=== PATIENT | male | born 1995 | race African-American/Black ===

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

== ENCOUNTER 2017-07-02 16:39 | Emergency (ER) | payer SELFPAY ==
[~2017-07-02] VITALS: Ht 167.6 cm; Wt 90.0 kg
[2017-07-02 17:37] VITALS: BP 124/70
== END 2017-07-02 17:44 | disposition home or self-care (01) | DRG 563 ==
LOC: ED 16:39
DX: S63.641A Sprain of metacarpophalangeal joint of right thumb, initial encounter (principal); W21.9XXA Striking against or struck by unspecified sports equipment, initial encounter; Y93.67 Activity, basketball; Y92.310 Basketball court as the place of occurrence of the external cause

== ENCOUNTER 2018-01-31 09:13 | Emergency (ER) | payer SELFPAY ==
[~2018-01-31] VITALS: Ht 167.6 cm; Wt 70.0 kg
[2018-01-31] MEDS ORDERED: ONDANSETRON4 MG PO (09:19)
[2018-01-31 09:50] LABS: HEMATOCRIT 45.1 % (39.0-50.0); HEMOGLOBIN 15.2 g/dl (14.0-18.0); IMMATURE GRANULOCYTES 0.5 % (0.0-5.0); MEAN CELL VOLUME 84.3 fL CALC (80.0-100.0); MEAN CORPUSCULAR HGB 28.4 pG CALC (26.0-32.0); MEAN CORPUSCULAR HGB CONC 33.7 g/L CALC (32.0-36.0); NEUT# 3.51 thou/uL (1.82-7.42); RED BLOOD COUNT 5.35 mill/uL (4.70-6.10); RED CELL DISTRI WIDTH 12.7 % (11.5-15.5)
[2018-01-31 10:02] LABS: ALKALINE PHOSPHATASE 77 u/l (38-126); ANION GAP 12 (6-22 (CALC)); BILIRUBIN, TOTAL 0.8 mg/dL (0.0-1.4); BUN 9 mg/dL (9-20); BUN/CREATININE RATIO 11 (12-20 (CALC)); CARBON DIOXIDE 26 mmol/l (22-30); CHLORIDE 106 mmol/l (95-108); CREATININE 0.9 mg/dL (0.7-1.3); GFR > 60 ML/MIN (>=60 (CALC)); GFR FOR AFR.AMER. > 60 ML/MIN (>=60 (CALC)); LIPASE 32 u/l (23-300); POTASSIUM 4.1 mmol/l (3.5-5.1); SGOT/AST 31 u/l (17-59); SGPT/ALT 34 u/l (21-72); SODIUM 141 mmol/l (137-146); TOTAL PROTEIN 7.5 g/dL (6.3-8.2)
[2018-01-31 11:45] LABS: URINE BILIRUBIN - DIPSTICK NEGATIVE (NEGATIVE); URINE BLOOD DIPSTICK NEGATIVE (NEGATIVE); URINE CLARITY CLEAR; URINE COLOR YELLOW; URINE GLUCOSE - DIPSTICK NEGATIVE (NEGATIVE); URINE KETONE NEGATIVE (NEGATIVE); URINE LEUK ESTERASE NEGATIVE (NEGATIVE); URINE NITRITE - DIPSTICK NEGATIVE (Negative); URINE PH 7.5 (4.5-8.0); URINE PROTEIN - DIPSTICK NEGATIVE (NEG-TRACE); URINE SPECIFIC GRAVITY 1.015; URINE UROBILINOGEN - DIPSTICK 0.2 E.U./dL (0.2)
[2018-01-31 12:30] VITALS: BP 145/81
== END 2018-01-31 12:29 | disposition home or self-care (01) | DRG 392 ==
LOC: ED 09:13
PROVIDERS: Family Medicine
DX: A08.4 Viral intestinal infection, unspecified (principal); R11.2 Nausea with vomiting, unspecified; R19.7 Diarrhea, unspecified

== ENCOUNTER 2018-03-16 18:25 | Emergency (ER) | payer SELFPAY ==
[~2018-03-16] VITALS: Ht 167.6 cm; Wt 68.2 kg
[~2018-03-16 18:25] MED LIST changes: +ONDANSETRON4 MG PO
[2018-03-16 20:39] VITALS: BP 125/69
== END 2018-03-16 20:39 | disposition home or self-care (01) | DRG 607 ==
LOC: ED 18:25
DX: L84 Corns and callosities (principal); F17.210 Nicotine dependence, cigarettes, uncomplicated

== ENCOUNTER 2018-06-04 17:02 | Emergency (ER) | payer SELFPAY ==
[~2018-06-04] VITALS: Ht 167.6 cm; Wt 70.0 kg
[2018-06-04 17:06] VITALS: BP 118/77
== END 2018-06-04 17:34 | disposition home or self-care (01) | DRG 392 ==
LOC: ED 17:02
DX: R10.32 Left lower quadrant pain (principal); F17.200 Nicotine dependence, unspecified, uncomplicated

== ENCOUNTER 2018-06-08 14:28 | Emergency (ER) | payer SELFPAY ==
[~2018-06-08] VITALS: Ht 167.6 cm; Wt 70.0 kg
[2018-06-08 16:19] LABS: URINE BILIRUBIN - DIPSTICK NEGATIVE (NEGATIVE); URINE BLOOD DIPSTICK NEGATIVE (NEGATIVE); URINE COLOR YELLOW; URINE GLUCOSE - DIPSTICK NEGATIVE (NEGATIVE); URINE KETONE NEGATIVE (NEGATIVE); URINE LEUK ESTERASE NEGATIVE (NEGATIVE); URINE NITRITE - DIPSTICK NEGATIVE (Negative); URINE PH 6.5 (4.5-8.0); URINE PROTEIN - DIPSTICK NEGATIVE (NEG-TRACE); URINE UROBILINOGEN - DIPSTICK 0.2 E.U./dL (0.2)
[2018-06-08 16:54] VITALS: BP 121/79
== END 2018-06-08 16:54 | disposition home or self-care (01) | DRG 696 ==
LOC: ED 14:28
PROVIDERS: Family Medicine
DX: R35.0 Frequency of micturition (principal); Z20.2 Contact with and (suspected) exposure to infections with a predominantly sexual mode of transmission
CPT/HCPCS: J0561

== ENCOUNTER 2018-06-18 16:45 | Emergency (ER) | payer SELFPAY ==
[~2018-06-18] VITALS: Ht 167.6 cm; Wt 72.0 kg
[2018-06-18 17:39] LABS: HEMATOCRIT 39.4 % (39.0-50.0); HEMOGLOBIN 13.3 g/dl (14.0-18.0); IMMATURE GRANULOCYTES 0.2 % (0.0-5.0); MEAN CELL VOLUME 83.7 fL CALC (80.0-100.0); MEAN CORPUSCULAR HGB 28.2 pG CALC (26.0-32.0); MEAN CORPUSCULAR HGB CONC 33.8 g/L CALC (32.0-36.0); NEUT# 1.48 thou/uL (1.82-7.42); RED BLOOD COUNT 4.71 mill/uL (4.70-6.10); RED CELL DISTRI WIDTH 12.4 % (11.5-15.5)
[2018-06-18 18:51] LABS: ANION GAP 12 (6-22 (CALC)); BUN 15 mg/dL (9-20); BUN/CREATININE RATIO 15 (12-20 (CALC)); CARBON DIOXIDE 25 mmol/l (22-30); CHLORIDE 107 mmol/l (95-108); GFR > 60 ML/MIN (>=60 (CALC)); GFR FOR AFR.AMER. > 60 ML/MIN (>=60 (CALC)); POTASSIUM 3.9 mmol/l (3.5-5.1); SODIUM 140 mmol/l (137-146)
[2018-06-18 19:15] VITALS: BP 109/60
== END 2018-06-18 19:15 | disposition home or self-care (01) | DRG 313 ==
LOC: ED 16:45
PROVIDERS: Family Medicine
DX: R07.89 Other chest pain (principal); F12.90 Cannabis use, unspecified, uncomplicated

== ENCOUNTER 2018-07-20 15:06 | Emergency (ER) | payer SELFPAY ==
[~2018-07-20] VITALS: Ht 167.6 cm; Wt 68.0 kg
[2018-07-20 16:10] VITALS: BP 110/76
== END 2018-07-20 16:10 | disposition home or self-care (01) | DRG 156 ==
LOC: ED 15:06
PROC: 3E1B78Z Irrigation of Ear using Irrigating Substance, Via Natural or Artificial Opening (ICD-10-PCS; principal; 2018-07-20)
PROC: 3E1B78Z Irrigation of Ear using Irrigating Substance, Via Natural or Artificial Opening (ICD-10-PCS; 2018-07-20)
DX: H61.23 Impacted cerumen, bilateral (principal)

== ENCOUNTER 2018-08-24 18:21 | Emergency (ER) | payer SELFPAY ==
[~2018-08-24] VITALS: Ht 167.6 cm; Wt 68.0 kg
[2018-08-24] MEDS ORDERED: AMOXICILLIN/CL500 MG PO (18:47)
[2018-08-24 18:50] VITALS: BP 126/90
== END 2018-08-24 18:50 | disposition home or self-care (01) | DRG 153 ==
LOC: ED 18:21
DX: J02.0 Streptococcal pharyngitis (principal)

== ENCOUNTER 2019-01-03 18:52 | Emergency (ER) | payer SELFPAY ==
[~2019-01-03] VITALS: Ht 167.6 cm; Wt 66.0 kg
[~2019-01-03 18:52] MED LIST changes: +AMOXICILLIN/CL500 MG PO
[2019-01-03] MEDS ORDERED: CLARITIN10 M1 PO (20:08)
[2019-01-03] MEDS ORDERED: AMOXICILLIN500 MG PO (20:08)
[2019-01-03 20:15] VITALS: BP 117/72
== END 2019-01-03 20:21 | disposition home or self-care (01) | DRG 153 ==
LOC: ED 18:52
DX: J03.90 Acute tonsillitis, unspecified (principal)

== ENCOUNTER 2019-02-14 18:59 | Emergency (ER) | payer SELFPAY ==
[~2019-02-14] VITALS: Ht 167.6 cm; Wt 90.0 kg
[~2019-02-14 18:59] MED LIST changes: +AMOXICILLIN500 MG PO; +CLARITIN10 M1 PO
[2019-02-14] MEDS ORDERED: BACTRIM DS1 TAB PO (20:28)
[2019-02-14] MEDS ORDERED: KEFLEX500 M1 PO (20:28)
[2019-02-14 20:40] VITALS: BP 135/75
--- NOTE | 2019-02-16 12:01 | NUR ---
Called Pt's phone number terry to inform him to stop Keflex and to continue taking Bactrim. Was able to get a hold of pt's signifigant other Tanisha. Tanisha stated that Pt would have dificulty getting ahold of [facility]. Tanisha stated that she called Pt's work and pt said that Tanisha could take a message for him. Was unable to verify Pt's work place and signifigant other did not want to disclose Pt's workplace. Tanisha stated that she would try to call [facility] at [phone] and do a three way with the patient.
== END 2019-02-14 20:40 | disposition home or self-care (01) | DRG 603 ==
LOC: ED 18:59
PROC: 0X940ZZ Drainage of Right Axilla, Open Approach (ICD-10-PCS; principal; 2019-02-14)
DX: L02.411 Cutaneous abscess of right axilla (principal); B95.62 Methicillin resistant Staphylococcus aureus infection as the cause of diseases classified elsewhere; F17.200 Nicotine dependence, unspecified, uncomplicated

== ENCOUNTER 2019-02-17 15:26 | Emergency (ER) | payer SELFPAY ==
[~2019-02-17] VITALS: Ht 167.6 cm; Wt 70.0 kg
[~2019-02-17 15:26] MED LIST changes: +BACTRIM DS1 TAB PO; +KEFLEX500 M1 PO
[2019-02-17 16:00] VITALS: BP 120/72
== END 2019-02-17 16:10 | disposition home or self-care (01) | DRG 951 ==
LOC: ED 15:26
DX: Z48.01 Encounter for change or removal of surgical wound dressing (principal); F17.200 Nicotine dependence, unspecified, uncomplicated

== ENCOUNTER 2019-06-19 | Emergency (ER) | payer SELFPAY ==
[2019-06-19] MEDS ORDERED: CLARITIN10 M1 PO ×2 (10:59)
[2019-06-19] MEDS ORDERED: AMOXICILLIN500 MG PO (10:59)
== END 2019-06-19 11:09 | disposition home or self-care (01) | DRG 153 ==
DX: J02.9 Acute pharyngitis, unspecified (principal); F17.200 Nicotine dependence, unspecified, uncomplicated

== ENCOUNTER 2020-02-14 12:40 | Emergency (ER) | payer SELFPAY ==
[~2020-02-14] VITALS: Ht 175.3 cm; Wt 65.9 kg
[2020-02-14] MEDS ORDERED: BACTROBAN TOP (13:03)
[2020-02-14] MEDS ORDERED: PREDNISONE20 MG PO (13:03)
[2020-02-14 13:15] VITALS: BP 106/67
== END 2020-02-14 13:15 | disposition home or self-care (01) | DRG 607 ==
LOC: ED 12:40
DX: L23.7 Allergic contact dermatitis due to plants, except food (principal); F17.290 Nicotine dependence, other tobacco product, uncomplicated

== ENCOUNTER 2020-08-12 15:03 | Emergency (ER) | payer SELFPAY ==
[~2020-08-12] VITALS: Ht 175.3 cm; Wt 70.0 kg
[~2020-08-12 15:03] MED LIST changes: +BACTROBAN TOP; +PREDNISONE20 MG PO
[2020-08-12 16:20] LABS: URINE BILIRUBIN - DIPSTICK NEGATIVE (NEGATIVE); URINE BLOOD DIPSTICK NEGATIVE (NEGATIVE); URINE CLARITY CLEAR; URINE COLOR YELLOW; URINE GLUCOSE - DIPSTICK NEGATIVE (NEGATIVE); URINE KETONE NEGATIVE (NEGATIVE); URINE LEUK ESTERASE NEGATIVE (Negative); URINE NITRITE - DIPSTICK NEGATIVE (Negative); URINE PROTEIN - DIPSTICK NEGATIVE (NEG-TRACE); URINE UROBILINOGEN - DIPSTICK 0.2 E.U./dL (0.2)
[2020-08-12 17:20] VITALS: BP 124/63
== END 2020-08-12 17:20 | disposition home or self-care (01) | DRG 563 ==
LOC: ED 15:03
DX: S39.012A Strain of muscle, fascia and tendon of lower back, initial encounter (principal); F17.200 Nicotine dependence, unspecified, uncomplicated; X50.0XXA Overexertion from strenuous movement or load, initial encounter; Y93.89 Activity, other specified; Y92.009 Unspecified place in unspecified non-institutional (private) residence as the place of occurrence of the external cause

== ENCOUNTER 2021-01-15 11:57 | Emergency (ER) | payer OTHER ==
[2021-01-15 13:19] LABS: HEMOGLOBIN 15.2 g/dl (14.0-18.0); IMMATURE GRANULOCYTES 0.3 % (0.0-5.0); MEAN CELL VOLUME 85.8 fL CALC (80.0-100.0); MEAN CORPUSCULAR HGB 28.1 pG CALC (26.0-32.0); MEAN CORPUSCULAR HGB CONC 32.8 g/dL CAL (32.0-36.0); NEUT# 1.08 thou/uL (1.82-7.42); RED BLOOD COUNT 5.41 mill/uL (4.70-6.10)
[2021-01-15 13:31] LABS: HEMATOCRIT 46.4 % (39.0-50.0)
[2021-01-15 13:48] LABS: ALBUMIN 4.5 g/dL (3.2-5.0); ALKALINE PHOSPHATASE 59 u/l (38-126); ANION GAP 14 (6-22 (CALC)); BUN 17 mg/dL (9-20); BUN/CREATININE RATIO 14 (12-20 (CALC)); CARBON DIOXIDE 25 mmol/l (22-30); CHLORIDE 102 mmol/l (95-108); CREATININE 1.2 mg/dL (0.7-1.3); GFR > 60 ML/MIN (>=60 (CALC)); GFR FOR AFR.AMER. > 60 ML/MIN (>=60 (CALC)); POTASSIUM 4.1 mmol/l (3.5-5.1); SGOT/AST 24 u/l (17-59); SODIUM 137 mmol/l (137-146); TOTAL PROTEIN 8.4 g/dL (6.3-8.2)
[2021-01-15 13:49] LABS: BILIRUBIN, TOTAL 1.3 mg/dL (0.0-1.4)
[2021-01-15 14:29] LABS: URINE BILIRUBIN - DIPSTICK NEGATIVE (NEGATIVE); URINE BLOOD DIPSTICK NEGATIVE (NEGATIVE); URINE COLOR YELLOW; URINE GLUCOSE - DIPSTICK NEGATIVE (NEGATIVE); URINE KETONE NEGATIVE (NEGATIVE); URINE LEUK ESTERASE NEGATIVE (NEGATIVE); URINE PROTEIN - DIPSTICK NEGATIVE (NEG-TRACE); URINE SPECIFIC GRAVITY 1.025; URINE UROBILINOGEN - DIPSTICK 0.2 E.U./dL (0.2)
[2021-01-15 14:33] LABS: URINE NITRITE - DIPSTICK NEGATIVE (Negative)
[2021-01-15 16:06] VITALS: BP 114/65
== END 2021-01-15 18:22 | disposition home or self-care (01) | DRG 179 ==
LOC: ED 11:57
DX: U07.1 COVID-19 (principal); F17.200 Nicotine dependence, unspecified, uncomplicated

== ENCOUNTER 2022-02-08 17:32 | Emergency (ER) | payer SELFPAY ==
[2022-02-08] VITALS (7 sets, daily range): BP systolic 93–124; BP diastolic 52–77
[~2022-02-08] VITALS: Ht 175.3 cm; Wt 63.5 kg
[2022-02-08 17:54] LABS: HEMATOCRIT 43.7 % (39.0-50.0); HEMOGLOBIN 14.6 g/dl (14.0-18.0); IMMATURE GRANULOCYTES 0.2 % (0.0-5.0); MEAN CELL VOLUME 85.4 fL CALC (80.0-100.0); MEAN CORPUSCULAR HGB 28.5 pG CALC (26.0-32.0); MEAN CORPUSCULAR HGB CONC 33.4 g/dL CAL (32.0-36.0); NEUT# 7.67 thou/uL (1.82-7.42); RED BLOOD COUNT 5.12 mill/uL (4.70-6.10); RED CELL DISTRI WIDTH 12.3 % (11.5-15.5)
[2022-02-08 18:07] LABS: ALBUMIN 4.5 g/dL (3.2-5.0); ALKALINE PHOSPHATASE 80 u/l (38-126); ANION GAP 13 (6-22 (CALC)); BILIRUBIN, TOTAL 1.7 mg/dL (0.0-1.4); BUN 15 mg/dL (9-20); BUN/CREATININE RATIO 16 (12-20 (CALC)); CARBON DIOXIDE 21 mmol/l (22-30); CHLORIDE 109 mmol/l (95-108); CREATININE 0.9 mg/dL (0.7-1.3); GFR FOR AFR.AMER. > 60 ML/MIN (>=60 (CALC)); GFR OTHER RACES > 60 ML/MIN (>=60 (CALC)); LIPASE 52 u/l (23-300); POTASSIUM 3.6 mmol/l (3.5-5.1); SGOT/AST 30 u/l (17-59); SODIUM 140 mmol/l (137-146); TOTAL PROTEIN 7.8 g/dL (6.3-8.2)
[2022-02-08] MEDS ORDERED: PROMETHAZINE HY25 M1 PO (18:35)
== END 2022-02-08 18:59 | disposition home or self-care (01) | DRG 392 ==
LOC: ED 17:32
PROVIDERS: Family Medicine
DX: K52.9 Noninfective gastroenteritis and colitis, unspecified (principal); F17.200 Nicotine dependence, unspecified, uncomplicated; Z20.822 Contact with and (suspected) exposure to COVID-19

== ENCOUNTER 2022-08-18 00:02 | Emergency (ER) | payer SELFPAY ==
[~2022-08-18] VITALS: Ht 175.3 cm; Wt 75.0 kg
[2022-08-18] VITALS (8 sets, daily range): BP systolic 127–189; BP diastolic 85–122
[~2022-08-18 00:02] MED LIST changes: +PROMETHAZINE HY25 M1 PO
[2022-08-18 00:27] LABS: BASO% 0.3 % (0-3); HEMATOCRIT 46.2 % (39.0-50.0); HEMOGLOBIN 15.1 g/dl (14.0-18.0); IMMATURE GRANULOCYTES 0.6 % (0.0-5.0); LYMPH% 23.4 % (15-41); MEAN CELL VOLUME 84.3 fL CALC (80.0-100.0); MEAN CORPUSCULAR HGB 27.6 pG CALC (26.0-32.0); MEAN CORPUSCULAR HGB CONC 32.7 g/dL CAL (32.0-36.0); MONO% 8.6 % (2-13); NEUT# 4.74 thou/uL (1.82-7.42); NEUT% 66.1 % (42-76); RED BLOOD COUNT 5.48 mill/uL (4.70-6.10); RED CELL DISTRI WIDTH 12.4 % (11.5-15.5)
[2022-08-18 00:39] LABS: ALBUMIN 4.6 g/dL (3.2-5.0); ALKALINE PHOSPHATASE 81 u/l (38-126); ANION GAP 12 (6-22 (CALC)); BILIRUBIN, TOTAL 1.2 mg/dL (0.2-1.3); BUN 12 mg/dL (9-20); BUN/CREATININE RATIO 12 (12-20 (CALC)); CARBON DIOXIDE 24 mmol/l (22-30); CHLORIDE 107 mmol/l (95-108); GFR FOR AFR.AMER. > 60 ML/MIN (>=60 (CALC)); GFR OTHER RACES > 60 ML/MIN (>=60 (CALC)); LIPASE 57 u/l (23-300); POTASSIUM 3.6 mmol/l (3.5-5.1); SGOT/AST 39 u/l (17-59); SODIUM 140 mmol/l (137-146)
[2022-08-18] MEDS ORDERED: PROMETHAZINE HY25 M1 PO (03:51)
== END 2022-08-18 04:45 | disposition home or self-care (01) | DRG 392 ==
LOC: ED 00:02
PROVIDERS: Family Medicine
DX: K52.9 Noninfective gastroenteritis and colitis, unspecified (principal); R11.2 Nausea with vomiting, unspecified; R51.9 Headache, unspecified; F17.210 Nicotine dependence, cigarettes, uncomplicated; Z20.822 Contact with and (suspected) exposure to COVID-19

== ENCOUNTER 2023-06-20 21:02 | Emergency (ER) | payer SELFPAY ==
[~2023-06-20] VITALS: Ht 175.3 cm; Wt 65.8 kg
[2023-06-20] MEDS ORDERED: VIBRAMYCIN100 M2 PO (22:06)
[2023-06-20 22:33] LABS: URINE BILIRUBIN - DIPSTICK Negative (NEGATIVE); URINE BLOOD DIPSTICK Negative (NEGATIVE); URINE GLUCOSE - DIPSTICK Negative (NEGATIVE); URINE KETONE Negative (NEGATIVE); URINE NITRITE - DIPSTICK Negative (Negative); URINE PH 6.5 (4.5-8.0); URINE PROTEIN - DIPSTICK Negative (NEG-TRACE); URINE UROBILINOGEN - DIPSTICK 0.2 E.U./dL (0.2)
[2023-06-20 22:37] LABS: URINE COLOR Yellow; URINE LEUK ESTERASE Moderate (NEGATIVE)
[2023-06-20 22:41] LABS: URINE BACTERIA FEW hpf; URINE MUCUS RARE hpf (NONE-FEW); URINE WBC 20-50 WBC/hpf (0-5)
[2023-06-20 23:13] VITALS: BP 128/79
== END 2023-06-20 22:50 | disposition home or self-care (01) | DRG 690 ==
LOC: ED 21:02
PROVIDERS: Family Medicine
DX: N34.2 Other urethritis (principal)

== ENCOUNTER 2023-08-03 18:40 | Emergency (ER) | payer SELFPAY ==
[~2023-08-03] VITALS: Ht 175.3 cm; Wt 63.5 kg
[~2023-08-03 18:40] MED LIST changes: +VIBRAMYCIN100 M2 PO
[2023-08-03 18:48] VITALS: BP 123/82
[2023-08-03 19:02] VITALS: BP 127/75
[2023-08-03] MEDS ORDERED: SODIUM CHLORIDE 0.9% 1,000 ML IV STA (19:10)
[2023-08-03] MEDS ORDERED: PROCHLORPERAZINE EDISYLATE 10 MG/2 ML SDV IV ONE (19:15)
[2023-08-03] MEDS ORDERED: LOPERAMIDE HCL 2 MG CAP PO ONE (19:15)
[2023-08-03 19:31] VITALS: BP 111/63
[2023-08-03 19:52] LABS: BASO% 0.1 % (0-3); HEMATOCRIT 39.8 % (39.0-50.0); HEMOGLOBIN 13.5 g/dl (14.0-18.0); IMMATURE GRANULOCYTES 0.2 % (0.0-5.0); LYMPH% 7.4 % (15-41); MEAN CELL VOLUME 84.1 fL CALC (80.0-100.0); MEAN CORPUSCULAR HGB 28.5 pG CALC (26.0-32.0); MEAN CORPUSCULAR HGB CONC 33.9 g/dL CAL (32.0-36.0); MONO% 5.5 % (2-13); NEUT# 7.06 thou/uL (1.82-7.42); NEUT% 86.8 % (42-76); RED BLOOD COUNT 4.73 mill/uL (4.70-6.10); RED CELL DISTRI WIDTH 12.5 % (11.5-15.5)
[2023-08-03 19:53] LABS: URINE BLOOD DIPSTICK Trace-intact (NEGATIVE); URINE GLUCOSE - DIPSTICK Negative (NEGATIVE); URINE KETONE 15 mg/dL (NEGATIVE); URINE LEUK ESTERASE Negative (NEGATIVE); URINE NITRITE - DIPSTICK Negative (Negative); URINE PH 8.5 (4.5-8.0); URINE PROTEIN - DIPSTICK 30 mg/dL (NEG-TRACE); URINE UROBILINOGEN - DIPSTICK 0.2 E.U./dL (0.2)
[2023-08-03 19:55] LABS: URINE COLOR Yellow
[2023-08-03 20:01] VITALS: BP 96/67
[2023-08-03 20:04] LABS: URINE RBC 0-2 RBC/hpf (0-5); URINE WBC 0-2 WBC/hpf (0-5)
[2023-08-03 20:17] LABS: ALBUMIN 4.5 g/dL (3.2-5.0); ALKALINE PHOSPHATASE 68 u/l (38-126); ANION GAP 13 (6-22 (CALC)); BILIRUBIN, TOTAL 1.1 mg/dL (0.2-1.3); BUN 11 mg/dL (9-20); BUN/CREATININE RATIO 13 (12-20 (CALC)); CARBON DIOXIDE 23 mmol/l (22-30); CHLORIDE 110 mmol/l (95-108); CREATININE 0.9 mg/dL (0.7-1.3); GFR FOR AFR.AMER. > 60 ML/MIN (>=60 (CALC)); GFR OTHER RACES > 60 ML/MIN (>=60 (CALC)); POTASSIUM 3.9 mmol/l (3.5-5.1); SGOT/AST 36 u/l (17-59); SODIUM 142 mmol/l (137-146); TOTAL PROTEIN 7.8 g/dL (6.3-8.2)
[2023-08-03] MEDS ORDERED: COMPAZINE10 MG PO (20:23)
[2023-08-03 20:30] VITALS: BP 100/53
[2023-08-03 20:34] VITALS: BP 100/53
== END 2023-08-03 20:43 | disposition home or self-care (01) | DRG 392 ==
LOC: ED 18:40
PROVIDERS: Family Medicine
DX: K52.9 Noninfective gastroenteritis and colitis, unspecified (principal); Z20.822 Contact with and (suspected) exposure to COVID-19

== ENCOUNTER 2023-12-08 08:50 | Emergency (ER) | payer SELFPAY ==
[~2023-12-08] VITALS: Ht 175.3 cm; Wt 63.0 kg
[~2023-12-08 08:50] MED LIST changes: +COMPAZINE10 MG PO
[2023-12-08] MEDS ORDERED: ONDANSETRON HCl 4 MG/2 ML SDV IV ONE ×2 (09:05→10:35)
[2023-12-08] MEDS ORDERED: SODIUM CHLORIDE 0.9% 1,000 ML IV ONE (09:05)
[2023-12-08 09:33] LABS: BASO% 0.3 % (0-3); EOS% 0.3 % (0-8); HEMATOCRIT 42.4 % (39.0-50.0); HEMOGLOBIN 13.9 g/dl (14.0-18.0); IMMATURE GRANULOCYTES 0.3 % (0.0-5.0); MEAN CELL VOLUME 84.3 fL CALC (80.0-100.0); MEAN CORPUSCULAR HGB 27.6 pG CALC (26.0-32.0); MEAN CORPUSCULAR HGB CONC 32.8 g/dL CAL (32.0-36.0); MONO% 8.1 % (2-13); NEUT# 5.89 thou/uL (1.82-7.42); RED BLOOD COUNT 5.03 mill/uL (4.70-6.10); RED CELL DISTRI WIDTH 12.2 % (11.5-15.5)
[2023-12-08 10:03] LABS: CREATININE 0.9 mg/dL (0.7-1.3); POTASSIUM 4.1 mmol/l (3.5-5.1)
[2023-12-08] MEDS ORDERED: ONDANSETRON4 MG PO (10:12)
[2023-12-08 10:38] VITALS: BP 117/75
[2023-12-08 10:43] VITALS: BP 117/75
== END 2023-12-08 11:00 | disposition home or self-care (01) | DRG 392 ==
LOC: ED 08:50
PROVIDERS: Family Medicine
DX: K52.9 Noninfective gastroenteritis and colitis, unspecified (principal)

== ENCOUNTER 2024-02-15 09:24 | Emergency (ER) | payer OTHER ==
[2024-02-15] VITALS (10 sets, daily range): BP systolic 113–142; BP diastolic 64–88
[~2024-02-15] VITALS: Ht 175.3 cm; Wt 63.5 kg
[2024-02-15] MEDS ORDERED: ONDANSETRON HCl 4 MG/2 ML SDV IV ONE (09:30)
[2024-02-15] MEDS ORDERED: SODIUM CHLORIDE 0.9% 1,000 ML IV ONE (09:30)
[2024-02-15 09:50] LABS: BASO% 0.2 % (0-3); HEMATOCRIT 41.8 % (39.0-50.0); HEMOGLOBIN 13.8 g/dl (14.0-18.0); IMMATURE GRANULOCYTES 0.1 % (0.0-5.0); LYMPH% 8.6 % (15-41); MEAN CELL VOLUME 83.9 fL CALC (80.0-100.0); MEAN CORPUSCULAR HGB 27.7 pG CALC (26.0-32.0); MONO% 6.7 % (2-13); NEUT# 7.35 thou/uL (1.82-7.42); NEUT% 84.4 % (42-76); RED BLOOD COUNT 4.98 mill/uL (4.70-6.10); RED CELL DISTRI WIDTH 12.7 % (11.5-15.5)
[2024-02-15 09:56] LABS: ALBUMIN 4.6 g/dL (3.2-5.0); BILIRUBIN, TOTAL 1.2 mg/dL (0.2-1.3); CREATININE 1.1 mg/dL (0.7-1.3); MAGNESIUM 1.6 mg/dL (1.6-2.3); TOTAL PROTEIN 8.4 g/dL (6.3-8.2)
[2024-02-15] MEDS ORDERED: PROMETHAZINE HCL 25 MG/ML AMP IM ONE (10:00)
[2024-02-15 11:00] LABS: URINE BILIRUBIN - DIPSTICK Negative (NEGATIVE); URINE BLOOD DIPSTICK Negative (NEGATIVE); URINE COLOR Yellow; URINE GLUCOSE - DIPSTICK Negative (NEGATIVE); URINE KETONE 15 mg/dL (NEGATIVE); URINE LEUK ESTERASE Negative (NEGATIVE); URINE NITRITE - DIPSTICK Negative (Negative); URINE PH 7.5 (4.5-8.0); URINE PROTEIN - DIPSTICK 30 mg/dL (NEG-TRACE); URINE UROBILINOGEN - DIPSTICK 0.2 E.U./dL (0.2)
[2024-02-15 11:01] LABS: URINE EPITHELIAL CELLS FEW EPI/hpf (0-FEW); URINE MUCUS MODERATE hpf (NONE-FEW)
[2024-02-15] MEDS ORDERED: PROMETHAZINE HY25 M1 PO (11:06)
== END 2024-02-15 11:49 | disposition home or self-care (01) | DRG 392 ==
LOC: ED 09:24
PROVIDERS: Family Medicine
DX: R11.2 Nausea with vomiting, unspecified (principal); E86.0 Dehydration; Z20.822 Contact with and (suspected) exposure to COVID-19

== ENCOUNTER 2024-02-16 21:07 | Emergency (ER) | payer OTHER | END 2024-02-16 21:56 | disposition left against medical advice (07) | DRG 951 | LOC: ED 21:07 → LWOBS 21:56 | DX: Z53.21 Procedure and treatment not carried out due to patient leaving prior to being seen by health care provider (principal) ==